=== PATIENT | female | born 1955 | race Caucasian/White ===

== ENCOUNTER 2018-03-11 13:20 | Outpatient (CLI) | payer BC | END 2018-03-11 13:21 | disposition home or self-care (01) | LOC: BICMAMMO 13:20 | PROVIDERS: ATTEND Family Medicine | DX: Z12.31 Encounter for screening mammogram for malignant neoplasm of breast (principal); Z80.3 Family history of malignant neoplasm of breast | CPT/HCPCS: 77063; 77067 ==

== ENCOUNTER 2020-06-15 12:59 | Outpatient (CLI) | payer MEDICARE, BC ==
--- NOTE | 2020-06-15 13:42 | BD ---
EXAM: Bone densitometry using DEXA HISTORY: 64 yo female. Screening for postmenopausal osteoporosis FINDINGS: L1--bone mineral density 0.786 g/sq cm; T score -1.9 ; Z score -0.2 L2--bone mineral density 0.865 g/sq cm; T score -1.5 ; Z score 0.4 L3--bone mineral density 1.048 g/sq cm; T score -0.3 ; Z score 1.6 L4--bone mineral density 0.981 g/sq cm; T score -0.7 ; Z score 1.3 Total L1-L4--bone mineral density 0.923 g/sq cm; T score -1.1 ; Z score 0.7 Left femoral neck--bone mineral density0.539; T score -2.8 ; Z score -1.2 Total proximal left femur--bone mineral density 0.661; T score -2.3 ; Z score -1.0 There has been an interval improvement of 10.3% in the BMD of the lumbar spine and a reduction of 1.6 % in the BMD of the proximal femur since 09/19/2016. IMPRESSION: Osteoporosis
--- NOTE | 2020-06-15 14:30 | MMO ---
Bilateral MAMMO Bilat Screen [facility]. CLINICAL HISTORY: Patient is 64 years old and is seen for screening. The patient has the following family history of breast cancer: grandmother, at age 60. The patient has no personal history of cancer. VIEWS: The views performed were: bilateral craniocaudal with tomosynthesis and bilateral mediolateral oblique with tomosynthesis. FILMS COMPARED: The present examination has been compared to prior imaging studies performed at [facility] on 03/11/2018, at [facility] on 06/28/2014, and at [facility] on 08/25/2015 and 09/14/2016. This study has been interpreted with the assistance of computer-aided detection. MAMMOGRAM FINDINGS: There are scattered fibroglandular densities. Benign calcifications are noted bilaterally. There are no suspicious masses, suspicious calcifications, or new areas of architectural distortion. IMPRESSION: THERE IS NO MAMMOGRAPHIC EVIDENCE OF MALIGNANCY. A ROUTINE FOLLOW-UP MAMMOGRAM IN 1 YEAR IS RECOMMENDED. THE RESULTS OF THIS EXAM WERE SENT TO THE PATIENT. ACR BI-RADS Category 2 - Benign finding MAMMOGRAPHY NOTE: 1. A negative mammogram report should not delay a biopsy if a dominant of clinically suspicious mass is present. 2. Approximately 10% to 15% of breast cancers are not detected by mammography. 3. Adenosis and dense breasts may obscure an underlying neoplasm. Reported by: JOSEFINA WARREN MD Electonically Signed: [id number]
== END 2020-06-15 13:00 | disposition home or self-care (01) ==
LOC: BICMAMMO 12:59
PROVIDERS: ATTEND Family Medicine
DX: Z12.31 Encounter for screening mammogram for malignant neoplasm of breast (principal); Z13.820 Encounter for screening for osteoporosis; M81.0 Age-related osteoporosis without current pathological fracture; Z80.3 Family history of malignant neoplasm of breast
CPT/HCPCS: 77063; 77067; 77080

== ENCOUNTER 2020-08-19 06:28 | Outpatient (CLI) | payer MEDICARE, BC, OTHER ==
[2020-08-19 14:03] LABS: Hemoglobin 12.6 g/dL (12.0-16.0); Mean Corpuscular HGB CONC 33.2 g/dL (32.0-36.0); Mean Corpuscular Hemoglobin 30.1 pg (27.0-31.0); Mean Corpuscular Volume 90.5 fL (78.0-98.0); Mean Platelet Volume 7.4 fL (7.4-10.4); Platelet Count 275 thou/uL (130-400); RBC Distribution Width 10.9 % (11.5-14.5); Red Blood Cell (RBC) Count 4.18 mill/uL (4.20-5.40); White Blood Cell (WBC) Count 5.5 thou/uL (4.8-10.8)
[2020-08-19 14:07] LABS: INR-International Normal Ratio 0.9; PTT 26.4 sec (22.9-36.1); Prothrombin Time 12.1 sec (12.0-14.7)
[2020-08-19 14:42] LABS: Anion Gap 17 mmol/L (10-20); BUN (Urea Nitrogen) 18 mg/dL (9.8-20.1); Calc. Creatinine Clearance 0 mL/min (70-130); Carbon Dioxide 28 mmol/L (23-31); Chloride 102 mmol/L (98-107); Estimated GFR-MDRD 50; Glucose 96 mg/dL (80-115); Potassium 4.1 mmol/L (3.5-5.1); Sodium 143 mmol/L (136-145)
[2020-08-20 14:47] LABS: SARS-CoV-2 MS2 Positive; SARS-CoV-2 N Gene Negative; SARS-CoV-2 S Gene Negative; SARS-CoV-2 by NAA Not Detected (NotDetected); SARS-CoV-2 orf1ab Negative
--- NOTE | 2020-08-22 15:40 | EKG ---
Test Reason : Blood Pressure : / mmHG Vent. Rate : 065 BPM Atrial Rate : 065 BPM P-R Int : 150 ms QRS Dur : 080 ms QT Int : 420 ms P-R-T Axes : 078 073 085 degrees QTc Int : 436 ms Normal sinus rhythm Nonspecific ST and T wave abnormality Abnormal ECG No previous ECGs available Confirmed by LETY MCALLISTER M.D. ([id number] on 08/22/2020 3:40:14 PM Referred By: ELAINE Confirmed By:LETY MCALLISTER M.D.
== END 2020-08-19 06:29 | disposition home or self-care (01) ==
LOC: LABBT 06:28
PROVIDERS: ATTEND Urology
DX: Z01.818 Encounter for other preprocedural examination (principal); Z20.828 Contact with and (suspected) exposure to other viral communicable diseases; N20.0 Calculus of kidney
CPT/HCPCS: 80048; 85027; 85610; 85730; 93005; U0003; 87635; 93010

== ENCOUNTER 2020-08-24 09:42 | Day surgery (SDC) | payer MEDICARE, BC ==
[2020-08-19 12:37] VITALS: BMI 21.9
[2020-08-24] MEDS ORDERED: cefTRIAXone\\ROCEPHIN 1 GM VIAL ONE (10:01)
[2020-08-24] MEDS ORDERED: Sodium Chloride 0.9% 100 ML ONE (10:01)
--- NOTE | 2020-08-24 10:11 | RAD ---
KUB: 08/24/2020 HISTORY: Renal stone disease, preoperative patient FINDINGS: There is a calcification along the expected course of the right ureter projecting between t he right transverse process of the L3 and L4 vertebral bodies measuring approximately 5 mm in craniocaudal dimension, suggesting a stone within the mid right ureter. There is multilevel degenerat jarred change within the lumbar spine, most prominent on the right at L3-4 and L4-5. The bowel gas pattern appears nonobstructed. IMPRESSION: Right paraspinal calcification suggesting a 5 mm stone within the right ureter.
[2020-08-24] MEDS ORDERED: Scopolamine 1.5 mg/72 hour Patch ONE (10:23)
[2020-08-24] MEDS ORDERED: Fentanyl 100 MCG/2 ML VIAL ONE (11:37)
[2020-08-24] MEDS ORDERED: Lidocaine 2% Jelly 5 ML TUBE ONE (11:37)
[2020-08-24] MEDS ORDERED: Promethazine HCl 25 MG/ML VIAL ONE (11:56)
[2020-08-24] MEDS ORDERED: Iothalamate Meglumine 60% 50 ML VIAL FS ONE (12:15)
[2020-08-24] MEDS ORDERED: Phenazopyridine HCl 97.5 MG TABLET ONE (13:17)
[2020-08-24] MEDS ORDERED: Oxybutynin 5 MG TAB ONE (13:17)
--- NOTE | 2020-08-24 14:04 | RAD ---
EXAM: Retrograde IVP HISTORY: Kidney stones COMPARISON: CT abdomen/pelvis 08/23/2020 FINDINGS/IMPRESSION: Limited intraoperative fluoroscopic views of the retrograde IVP were submitted f or interpretation. There is mild right hydronephrosis. There is a questionable calcification in the region of the right mid ureter. A lithotripsy device is eventually placed with nonvisualization of t he calcification after that. At the completion, a double-J ureteral stent appears in good position.
--- NOTE | 2020-08-24 14:28 | OP ---
DATE OF PROCEDURE: 08/24/2020 PREOPERATIVE DIAGNOSES: 1. A 64-year-old female with history of right proximal ureteral calculi at the level of L5 measuring 4 mm with moderate hydronephrosis. 2. Left 1 to 2 mm punctate left renal calculi. POSTOPERATIVE DIAGNOSES: 1. A 64-year-old female with history of right proximal ureteral calculi at the level of L5 measuring 4 mm with moderate hydronephrosis. 2. Left 1 to 2 mm punctate left renal calculi. PROCEDURES PERFORMED: Cystoscopy, balloon dilatation of the right distal ureter, flexible ureteroscopy, pyeloscopy, laser lithotripsy of ureteral calculi, balloon dilatation of distal ureter, retrograde pyelogram, 6 x 24 double-J ureteral stent with Dangler taped to pubic symphysis. ANESTHESIA: General. COMPLICATIONS: None apparent. DISPOSITION: To recovery room in stable condition. SPECIMEN: None. INDICATIONS FOR PROCEDURE AND HISTORY: Ms. Gabriel is a 64-year-old female with history of recurrent urolithiasis, referred by primary care as she underwent CT scan due to right flank pain demonstrating moderate hydronephrosis due to 4-mm proximal ureteral calculi at the level of L4. She has had mild discomfort, however, due to non-progression of her stone, presents today for ureteroscopy, laser lithotripsy. She did request another CAT scan, as her pain was vague, which I informed her, she did not see the stone, most likely she has persistent stone with ongoing discomfort. However, she insisted on repeating a CT scan, which demonstrated non-progression of her stone. She presents today for ureteroscopy, laser lithotripsy and we had discussed options of medical expulsion therapy to continue. She agrees to proceed with ureteroscopy, laser lithotripsy. Risks and complications of procedure were reviewed with her in detail including, but not limited to: Bleeding, pain, infection, injury to adjacent organs, ureteral renal kidney injury, sepsis, possible secondary procedure. All questions were answered to her satisfaction and she desired to proceed. DESCRIPTION OF PROCEDURE: After an informed consent was signed, the patient was taken to the operating room, placed in a dorsal lithotomy position with the genital area prepped and draped in the usual surgical sterile fashion. A 21-Namibian cystoscope was utilized for cystoscopy, which demonstrated normal urethra and bladder mucosa. The UOs are normal orthotopic position. A 5-Namibian open-ended catheter was utilized to perform a retrograde pyelogram and this demonstrated the filling defect in the level of L3-L4 consistent with urolithiasis with proximal dilation of the ureter. A 0.035 Sensor wire was utilized to pass into the level of the upper pole, however, there was mild resistance at the level of the stone with negotiation. We were able to pass the wire to the level of the upper pole with ease. At this time, we transitioned to a 6 cm 12-Namibian balloon dilator. Intramural ureter was dilated under fluoroscopic guidance. Subsequently, we passed a 10-Namibian dual-lumen access sheath with ease and a second 0.035 Super Stiff wire was placed into the right upper pole. A 12 x 14-Namibian navigator was passed to the level of the stone and a flexible ureteroscope was advanced to the level of the stone. Stone was easily visualized, was rendered free from the mucosa, which was somewhat adherent and the stone did migrate into the renal pelvis into the mid pole. Stone was isolated, and using 200 micron laser fiber at 1.0 joules, we laser lithotripsied the stone into dust-like debris. At this time, we surveyed the collecting system in the ureter demonstrating no evidence of ureteral mucosa trauma or stone nidus of concern. As there was endoscopic clearance, we placed a 6 x 24 double-J ureteral stent with Dangler taped to the patient's pubic symphysis. Bladder was completely emptied and she tolerated the procedure well. She is discharged with tramadol #30, VESIcare one p.o. daily, Colace p.o. b.i.d. p.r.n., Azo [id number], and Omnicef 300 mg one p.o. b.i.d. until followup appointment. She will return to clinic on September 01 for stent pull on Dangler. As she does have elevated calcium of 10.7, we will proceed with formal metabolic panel at a later date. Job ID: [id number] [facility]
[2020-08-24] MEDS ORDERED: Rocuronium Bromide 10 MG/ML (10ML VIAL) ONE (15:34)
[2020-08-24] MEDS ORDERED: Ondansetron PF 4 MG/2 ML Vial ONE (15:34)
[2020-08-24] MEDS ORDERED: Lidocaine 1% PF 5 ML VIAL ONE (15:34)
[2020-08-24] MEDS ORDERED: Glycopyrrolate 0.2 MG/ML 5 ML SYRINGE ONE ×2 (15:34)
[2020-08-24] MEDS ORDERED: Dexamethasone 20 MG/5 ML VIAL ONE (15:34)
[2020-08-24] MEDS ORDERED: Ketorolac Tromethamine 30 MG/ML VIAL ONE (15:34)
[2020-08-24] MEDS ORDERED: PROPOFOL 200 MG/20 ML VIAL ONE (15:34)
== END 2020-08-24 16:48 | disposition home or self-care (01) ==
LOC: SDC 09:42
PROVIDERS: ATTEND Urology
PROC: 0TC68ZZ Extirpation of Matter from Right Ureter, Via Natural or Artificial Opening Endoscopic (ICD-10-PCS; principal; 2020-08-24)
PROC: 0T768DZ Dilation of Right Ureter with Intraluminal Device, Via Natural or Artificial Opening Endoscopic (ICD-10-PCS; 2020-08-24)
DX: N13.2 Hydronephrosis with renal and ureteral calculous obstruction (principal); E78.5 Hyperlipidemia, unspecified; G43.909 Migraine, unspecified, not intractable, without status migrainosus; F32.9 Major depressive disorder, single episode, unspecified; F41.9 Anxiety disorder, unspecified; M81.0 Age-related osteoporosis without current pathological fracture; E55.9 Vitamin D deficiency, unspecified; E89.2 Postprocedural hypoparathyroidism; Z87.891 Personal history of nicotine dependence; Z79.82 Long term (current) use of aspirin; Z79.899 Other long term (current) drug therapy; Z88.1 Allergy status to other antibiotic agents; Z88.2 Allergy status to sulfonamides; Z88.8 Allergy status to other drugs, medicaments and biological substances
CPT/HCPCS: 74018; 74420; J0696; J1100; J1885; J2405; J2550; J2704; J3010; J3490

== ENCOUNTER 2020-11-03 11:58 | Outpatient (CLI) | payer MEDICARE, BC ==
--- NOTE | 2020-11-03 12:27 | RAD ---
EXAM: XR Abdomen 1 View/KUB PROVIDED CLINICAL HISTORY: Recurrent kidney stone COMPARISON: 08/24/2020 FINDINGS: Previously seen calcification overlying the expected location of the proximal right ureter at the L3- 4 level is no longer visualized on this examination which may represent interval passage or treatment. No suspicious calcifications are seen on this examination. Bowel gas pattern is nonspecifi c. Degenerative changes are seen in the lumbar spine with mild left convex curvature lumbar spine. IMPRESSION: 1. Nonspecific bowel gas pattern. 2. No suspicious calcifications are seen overlying the renal collecting systems or along the course o f either ureter. Previously seen calcification on the right at the L3-4 level is no longer visualized likely due to interval treatment. 3. Right ureteral stent seen on retrograde study on 08/24/2020 has been removed.
--- NOTE | 2020-11-03 13:42 | ULT ---
RENAL ULTRASOUND: 11/03/20 INDICATIONS: Hypercalcemia. Recurrent urinary stones. Both kidneys measure approximately 10 cm length. No hydronephrosis. Within the right kidney there is a hyperechoic focus measuring approximately 5 mm which suggests a small calculus. This is in the mid pole collecting structure. Left kidney shows no evidence of calculus or mass. Bladder is empty and not adequately evaluated. IMPRESSION: Evidence of small calculus in the right upper collecting structures. Renal ultrasound exam otherwise unremarkable. POS: AGW
== END 2020-11-03 11:59 | disposition home or self-care (01) ==
LOC: BICULT 11:58
PROVIDERS: ATTEND Urology
DX: N20.0 Calculus of kidney (principal); R31.29 Other microscopic hematuria
CPT/HCPCS: 36415; 74018; 76770; 80048; 81001; 83970; 84550; 87086

== ENCOUNTER 2020-12-29 12:31 | Outpatient (CLI) | payer MEDICARE, BC ==
[2020-12-29] MEDS ORDERED: Iopamidol-370 76% 500 ML 1 ML ONE (13:36)
== END 2020-12-29 12:32 | disposition home or self-care (01) ==
LOC: BICCT 12:31
PROVIDERS: ATTEND Specialist
DX: E34.9 Endocrine disorder, unspecified (principal); Z90.89 Acquired absence of other organs
CPT/HCPCS: 70492; 82565; Q9967

== ENCOUNTER 2021-01-23 08:34 | Outpatient (CLI) | payer MEDICARE, BC ==
--- NOTE | 2021-01-23 12:55 | NM ---
Nuclear medicine parathyroid scan with SPECT imagin01/23/2021 HISTORY: Hyperparathyroidism FINDINGS: Anterior, ANDERSEN, and TAIWANESE imaging is obtained immediately following and 1 hour following the i ntravenous administration of 26.3 mCi technetium 99m labeled sestamibi. SPECT imaging of the neck was obtained in the axial, coronal, and sagittal plane. There is normal radiotracer activity within the salivary glands and the left lobe of the thyroid glan d. 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 Recent CT demonstrated a small amount of residual thyroid tissue on the right within the thyroidectomy bed. This examination demonstrates no abnormal radiotrac er activity to suggest the presence of abnormal parathyroid tissue. 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 No convincing radiographic evidence for a parathyroid adenoma/abnormal parathyroid tissue.
== END 2021-01-23 08:35 | disposition home or self-care (01) ==
LOC: NM 08:34
PROVIDERS: ATTEND Specialist
DX: E34.9 Endocrine disorder, unspecified (principal); Z98.890 Other specified postprocedural states
CPT/HCPCS: 78072; A9500

== ENCOUNTER 2021-02-20 12:59 | Outpatient (CLI) | payer MEDICARE, BC | END 2021-02-20 13:00 | disposition home or self-care (01) | LOC: BICCT 12:59 | PROVIDERS: ATTEND Urology | DX: N20.0 Calculus of kidney (principal) | CPT/HCPCS: 74176 ==

== ENCOUNTER 2022-05-07 13:40 | Outpatient (CLI) | payer MEDICARE, BC | END 2022-05-07 13:41 | disposition home or self-care (01) | LOC: BICRAD 13:40 | PROVIDERS: ATTEND Urology | DX: N20.0 Calculus of kidney (principal) | CPT/HCPCS: 74018 ==

== ENCOUNTER 2022-08-29 14:22 | Outpatient (CLI) | payer MEDICARE, BC | END 2022-08-29 14:23 | disposition home or self-care (01) | LOC: BICMAMMO 14:22 | PROVIDERS: ATTEND Family Medicine | DX: Z12.31 Encounter for screening mammogram for malignant neoplasm of breast (principal); M81.0 Age-related osteoporosis without current pathological fracture; M85.88 Other specified disorders of bone density and structure, other site; Z80.3 Family history of malignant neoplasm of breast | CPT/HCPCS: 77063; 77067; 77080 ==

== ENCOUNTER 2023-04-15 15:43 | Outpatient (CLI) | payer MEDICARE, BC | END 2023-04-15 15:44 | disposition home or self-care (01) | LOC: RAD 15:43 | PROVIDERS: ATTEND Family Medicine | DX: M54.42 Lumbago with sciatica, left side (principal); M47.816 Spondylosis without myelopathy or radiculopathy, lumbar region | CPT/HCPCS: 72100 ==

== ENCOUNTER 2023-04-16 15:17 | Outpatient (CLI) | payer MEDICARE, BC ==
[~2023-04-16 15:17] MED LIST: Iopamidol 370 76% 100 ML VIAL ONE
== END 2023-04-16 15:18 | disposition home or self-care (01) ==
LOC: CT 15:17
PROVIDERS: ATTEND Family Medicine
DX: M54.42 Lumbago with sciatica, left side (principal); M47.26 Other spondylosis with radiculopathy, lumbar region; M48.062 Spinal stenosis, lumbar region with neurogenic claudication; R29.898 Other symptoms and signs involving the musculoskeletal system; N20.0 Calculus of kidney
CPT/HCPCS: 72133; 82565; Q9967

== ENCOUNTER 2023-10-11 13:48 | Outpatient (CLI) | payer MEDICARE, BC | END 2023-10-11 13:49 | disposition home or self-care (01) | LOC: BICMAMMO 13:48 | PROVIDERS: ATTEND Family Medicine | DX: Z12.31 Encounter for screening mammogram for malignant neoplasm of breast (principal); Z80.3 Family history of malignant neoplasm of breast | CPT/HCPCS: 77063; 77067 ==

== ENCOUNTER 2025-07-14 15:23 | Outpatient (CLI) | payer MEDICARE, BC | END 2025-07-14 15:24 | disposition home or self-care (01) | LOC: SCSMRI 15:23 | PROVIDERS: ATTEND Orthopaedic Surgery | DX: M47.26 Other spondylosis with radiculopathy, lumbar region (principal); M47.817 Spondylosis without myelopathy or radiculopathy, lumbosacral region; M48.061 Spinal stenosis, lumbar region without neurogenic claudication; M48.07 Spinal stenosis, lumbosacral region | CPT/HCPCS: 72148 ==

== ENCOUNTER 2025-09-21 13:24 | Outpatient (CLI) | payer MEDICARE, BC | END 2025-09-21 13:25 | disposition home or self-care (01) | LOC: BICMAMMO 13:24 | PROVIDERS: ATTEND Family Medicine | DX: Z78.0 Asymptomatic menopausal state (principal); M48.02 Spinal stenosis, cervical region; M48.04 Spinal stenosis, thoracic region; M51.34 Other intervertebral disc degeneration, thoracic region; M50.33 Other cervical disc degeneration, cervicothoracic region; M81.0 Age-related osteoporosis without current pathological fracture; M85.88 Other specified disorders of bone density and structure, other site | CPT/HCPCS: 72141; 72146; 77080 ==

== ENCOUNTER 2025-11-05 23:11 | Inpatient (IN) | payer MEDICARE, BC ==
[2025-11-05 23:30] VITALS: BMI 18.7
[2025-11-05] MEDS ORDERED: Calcium Carbonate 500 MG ChewTAB PO PRN (23:35)
[2025-11-05] MEDS ORDERED: Electrolyte Replacement Protocol 1 EACH FS SCH (23:45)
[2025-11-05] MEDS ORDERED: PHOS-NAK 1 PKT PACK PO PRN (23:45)
[2025-11-06] MEDS: Acetaminophen 325 MG TAB PO PRN (00:37)
[2025-11-06 03:53] LABS: #Basophils Less than 0.03 10x3/uL (0.0-0.2); #Eosinophils Less than 0.03 10x3/uL (0.0-0.7); #Monocytes 0.77 10x3/uL (0.11-0.59); #Neutrophils 6.79 10x3/uL (1.40-6.50); %Basophils 0.2 % (0.0-1.0); %Eosinophils 0.0 % (0.0-10.0); %Lymphocytes 9.5 % (21.0-51.0); %Monocytes 9.1 % (0.0-10.0); %Neutrophils 80.7 % (42.0-75.0); Hematocrit 28.2 % (36.0-47.0); Hemoglobin 9.4 g/dL (12.0-16.0); Mean Corpuscular Hemoglobin 29.9 pg (27.0-31.0); Mean Corpuscular Volume 89.8 fL (78.0-98.0); Platelet Count 199 10x3/uL (130-400); Red Blood Cell (RBC) Count 3.14 mill/uL (4.20-5.40); White Blood Cell (WBC) Count 8.42 10x3/uL (4.8-10.8)
[2025-11-06 04:17] LABS: ALT (SGPT) 7 U/L (Less than 34); AST (SGOT) 18 U/L (11-34); Albumin 3.0 g/dL (3.1-4.5); Alkaline Phosphatase 52 U/L (40-110); Anion Gap 11 mmol/L (10-20); BUN (Urea Nitrogen) 10 mg/dL (9.8-20.1); Bilirubin, Total 0.4 mg/dL (0.3-1.2); Calc. Creatinine Clearance 57 mL/min (70-130); Calcium 9.2 mg/dL (7.8-10.44); Carbon Dioxide 27 mmol/L (23-31); Chloride 105 mmol/L (98-107); Globulin 3.2 g/dL (2.4-3.5); Glucose 116 mg/dL (83-110); Magnesium 1.4 mg/dL (1.6-2.6); Potassium 3.3 mmol/L (3.5-5.1); Sodium 140 mmol/L (136-145)
[2025-11-06] MEDS: Potassium Chloride 20 MEQ in Premix 1 BAG IVPB PRN (05:51)
[2025-11-06] MEDS: cefTRIAXone\\ROCEPHIN 2 GM in Sodium Chloride 0.9% 100 ML IVPB SCH (09:08)
[2025-11-06] MEDS: Ondansetron PF 4 MG/2 ML Vial IVP PRN (12:48)
[2025-11-06] MEDS ORDERED: SUCCINYLCHOLINE/SOD CL,ISO/PF 200 MG/10 ML SYRINGE FS ONE (14:27)
[2025-11-06] MEDS ORDERED: PROPOFOL 200 MG/20 ML VIAL ONE (14:27)
[2025-11-06] MEDS ORDERED: SUGAMMADEX SODIUM 200 MG/2 ML VIAL ONE (14:39)
[2025-11-07 07:03] LABS: #Basophils Less than 0.03 10x3/uL (0.0-0.2); #Eosinophils Less than 0.03 10x3/uL (0.0-0.7); #Monocytes 0.55 10x3/uL (0.11-0.59); #Neutrophils 4.94 10x3/uL (1.40-6.50); %Basophils 0.2 % (0.0-1.0); %Eosinophils 0.0 % (0.0-10.0); %Lymphocytes 17.0 % (21.0-51.0); %Monocytes 8.3 % (0.0-10.0); %Neutrophils 74.3 % (42.0-75.0); Hematocrit 30.9 % (36.0-47.0); Hemoglobin 10.1 g/dL (12.0-16.0); Mean Corpuscular Hemoglobin 29.2 pg (27.0-31.0); Mean Corpuscular Volume 89.3 fL (78.0-98.0); Platelet Count 179 10x3/uL (130-400); Red Blood Cell (RBC) Count 3.46 mill/uL (4.20-5.40); White Blood Cell (WBC) Count 6.64 10x3/uL (4.8-10.8)
[2025-11-07 07:25] LABS: ALT (SGPT) 11 U/L (Less than 34); AST (SGOT) 19 U/L (11-34); Albumin 3.1 g/dL (3.1-4.5); Alkaline Phosphatase 60 U/L (40-110); Anion Gap 16 mmol/L (10-20); BUN (Urea Nitrogen) 9 mg/dL (9.8-20.1); Bilirubin, Total 0.3 mg/dL (0.3-1.2); Calc. Creatinine Clearance 59 mL/min (70-130); Calcium 9.6 mg/dL (7.8-10.44); Carbon Dioxide 24 mmol/L (23-31); Chloride 105 mmol/L (98-107); Globulin 3.5 g/dL (2.4-3.5); Glucose 99 mg/dL (83-110); Magnesium 1.4 mg/dL (1.6-2.6); Potassium 3.4 mmol/L (3.5-5.1); Sodium 142 mmol/L (136-145)
[2025-11-07] MEDS: Gabapentin 300 MG CAP PO SCH (09:30)
[2025-11-07] MEDS: Magnesium Sulfate In Water 4 GM in Premix 1 BAG IVPB PRN (10:12)
[2025-11-07] MEDS: Oxybutynin 5 MG TAB PO PRN (15:27)
[2025-11-07] MEDS ORDERED: Oxybutynin 5 MG TAB PO PRN (19:27)
[2025-11-07] MEDS: Rosuvastatin 5 MG TAB PO SCH (20:11)
[2025-11-08] MEDS ORDERED: PNEUMOC 20-VAL CONJ-DIP CRM/PF 0.5 ML SYRINGE IM ONE (09:00)
[2025-11-08] MEDS ORDERED: FLU (Fluad Triv) 25-26 (65UP)PF 45 MCG/0.5 ML Syringe IM ONE (09:00)
[2025-11-08 10:00] LABS: Glucose, Urine (Dipstick) 100 mg/dL (Negative); Leukocyte Moderate (Negative); Protein, Urine (Dipstick) 100 mg/dL (Neg-Trace); Specific Gravity, Urine 1.020 (1.005-1.030)
[2025-11-08 10:05] LABS: Bacteria/HPF None Seen HPF (None Seen); RBC/HPF Greater than 50 HPF (0-3); WBC/HPF Greater than 50 HPF (0-3)
[2025-11-08 11:10] VITALS: BP 136/56; TEMP 98.5
== END 2025-11-08 11:15 | disposition home or self-care (01) | DRG 661 ==
LOC: CCU 23:11 → T4-B 11-06 14:40
PROVIDERS: ADMIT Student in an Organized Health Care Education/Training Program; ATTEND Internal Medicine
PROC: 0T768ZZ Dilation of Right Ureter, Via Natural or Artificial Opening Endoscopic (ICD-10-PCS; principal; 2025-11-06)
PROC: BT1D1ZZ Fluoroscopy of Right Kidney, Ureter and Bladder using Low Osmolar Contrast (ICD-10-PCS; 2025-11-06)
DX: N13.6 Pyonephrosis (principal); I10 Essential (primary) hypertension; E78.5 Hyperlipidemia, unspecified; E87.6 Hypokalemia; B96.89 Other specified bacterial agents as the cause of diseases classified elsewhere; E89.0 Postprocedural hypothyroidism; Z87.891 Personal history of nicotine dependence; Z88.8 Allergy status to other drugs, medicaments and biological substances; Z79.899 Other long term (current) drug therapy
CPT/HCPCS: 36415; 74177; 74420; 76705; 80053; 81001; 83605; 83690; 83735; 84100; 84484; 85025; 87077; 87086; 87186; 87428; 93005; C1769; C2617; J0696; J1100; J1885; J2270; J2405; J2704; J3475; J3480; J7030; Q0162; Q9967

== ENCOUNTER 2025-11-17 06:30 | Day surgery (SDC) | payer MEDICARE, BC ==
[2025-11-17 07:45] LABS: #Basophils 0.04 10x3/uL (0.0-0.2); #Eosinophils 0.16 10x3/uL (0.0-0.7); #Monocytes 0.58 10x3/uL (0.11-0.59); #Neutrophils 7.83 10x3/uL (1.40-6.50); %Basophils 0.4 % (0.0-1.0); %Eosinophils 1.6 % (0.0-10.0); %Lymphocytes 13.6 % (21.0-51.0); %Monocytes 5.8 % (0.0-10.0); %Neutrophils 78.2 % (42.0-75.0); Hematocrit 32.0 % (36.0-47.0); Hemoglobin 10.3 g/dL (12.0-16.0); Mean Corpuscular Hemoglobin 29.3 pg (27.0-31.0); Mean Corpuscular Volume 91.2 fL (78.0-98.0); Platelet Count 280 10x3/uL (130-400); Red Blood Cell (RBC) Count 3.51 mill/uL (4.20-5.40); White Blood Cell (WBC) Count 10.01 10x3/uL (4.8-10.8)
[2025-11-17] MEDS ORDERED: PROPOFOL 20 ML ONE ×2 (07:45→07:46)
[2025-11-17] MEDS ORDERED: Lidocaine 1% PF 5 ML VIAL ONE (07:46)
[2025-11-17] MEDS ORDERED: cefTRIAXone (ROCEPHIN) 2 GM VIAL ONE (07:46)
[2025-11-17] MEDS ORDERED: Rocuronium Bromide 10 MG/ML (10ML VIAL) ONE ×2 (07:46→08:34)
[2025-11-17 07:59] LABS: INR-International Normal Ratio 1.0; Prothrombin Time 13.2 sec (12.0-14.7)
[2025-11-17 08:00] LABS: Anion Gap 15 mmol/L (10-20); BUN (Urea Nitrogen) 17 mg/dL (9.8-20.1); Calc. Creatinine Clearance 54 mL/min (70-130); Calcium 10.2 mg/dL (7.8-10.44); Carbon Dioxide 28 mmol/L (23-31); Chloride 105 mmol/L (98-107); Glucose 106 mg/dL (83-110); PTT 25.9 sec (22.9-36.1); Potassium 5.0 mmol/L (3.5-5.1); Sodium 143 mmol/L (136-145)
[2025-11-17] MEDS ORDERED: fentaNYL PF 100 MCG/2 ML SYRINGE ONE (08:16)
[2025-11-17] MEDS ORDERED: PROPOFOL 200 MG/20 ML VIAL ONE (08:34)
[2025-11-17] MEDS ORDERED: Ketorolac Tromethamine 30 MG (1 mL) VIAL ONE ×2 (08:34→09:18)
[2025-11-17] MEDS ORDERED: Ondansetron PF 4 MG/2 ML Vial ONE (08:39)
[2025-11-17] MEDS ORDERED: SUGAMMADEX SODIUM 200 MG/2 ML VIAL ONE (09:15)
[2025-11-17] MEDS ORDERED: Oxybutynin 5 MG TAB ONE (09:53)
[2025-11-29 07:11] LABS: CA Oxalate Dihydrate 30 % (.); CA Oxalate Monohydrate 65 % (.); Color Brown (.); Stone Weight 44 mg (.)
== END 2025-11-17 12:05 | disposition home or self-care (01) ==
LOC: SDC 06:30
PROVIDERS: ATTEND Urology
PROC: 0WHR8YZ Insertion of Other Device into Genitourinary Tract, Via Natural or Artificial Opening Endoscopic (ICD-10-PCS; principal; 2025-11-17)
DX: N20.0 Calculus of kidney (principal); Z88.0 Allergy status to penicillin; Z88.2 Allergy status to sulfonamides; Z88.5 Allergy status to narcotic agent; Z88.8 Allergy status to other drugs, medicaments and biological substances; Z98.890 Other specified postprocedural states
CPT/HCPCS: 52356; C9761; 74420; 80048; 82365; 85025; 85610; 85730; 88300; C1747; C1758; C1769; C2617; J0696; J1100; J1885; J2405; J2704; Q9967